=== PATIENT | female | born 2000 | race Caucasian/White ===

== ENCOUNTER 2022-12-19 19:31 | Outpatient (CLI) ==
[~2022-12-19] VITALS: Ht 154.9 cm; Wt 100.4 kg
[2022-12-19 20:12] VITALS: BP 136/87
[2022-12-19 20:24] VITALS: BP 132/67
[2022-12-19 20:29] LABS: APPEARANCE, URINE HAZY (CLEAR); BACTERIA, URINE AUTO 3+ (NEGATIVE); BILIRUBIN, URINE AUTO NEGATIVE (NEGATIVE); BLOOD, URINE BLOOD NEGATIVE (NEGATIVE); COLOR, URINE YELLOW (YELLOW); GLUCOSE, URINE (UA) AUTO NEGATIVE (NEGATIVE); KETONE, URINE AUTO TRACE mg/dL (NEGATIVE); LEUKOCYTE ESTERASE, URINE AUTO 2+ (NEGATIVE); MUCUS, URINE SMALL (NEGATIVE); NITRITE, URINE AUTO NEGATIVE (NEGATIVE); PROTEIN, URINE AUTO NEGATIVE (NEGATIVE); RBC, URINE AUTO 2 /HPF (0-3); SPECIFIC GRAVITY URINE AUTO 1.018 (1.002-1.035); SQUAMOUS EPITHELIAL CELL UR AU 7 /HPF (0-6); UROBILINOGEN, URINE AUTO 0.2 mg/dL (0.0-2.0); WBC, URINE AUTO 2 /HPF (0-3)
== END 2022-12-19 20:44 | disposition home or self-care (01) ==
LOC: M LDO 19:31
PROVIDERS: ATTEND Advanced Practice Midwife
DX: O26.892 Other specified pregnancy related conditions, second trimester (principal); M54.31 Sciatica, right side; Z3A.26 26 weeks gestation of pregnancy
CPT/HCPCS: 59025; 81001; 87086; G0463

== ENCOUNTER → 2023-01-13 | Outpatient (CLI) | payer MEDICAID, OTHER ==
[2023-01-13 13:33] LABS: HEMATOCRIT 38.1 % (36.0-47.0); HEMOGLOBIN 12.1 g/dl (12.0-15.5); MEAN CORPUSCULAR HEMOGLOBIN 27.6 pg (27.0-33.0); MEAN CORPUSCULAR HGB CONC 31.8 g/dl (32.0-36.5); PLATELET COUNT, AUTOMATED 337 10^3/uL (150-450); RED BLOOD COUNT 4.38 10^6/uL (4.00-5.40); WHITE BLOOD COUNT 10.3 10^3/uL (4.0-10.0)
[2023-01-13 16:03] LABS: GC DNA AMPLIFICATION NEGATIVE (NEGATIVE)
== END ==
LOC: M PLALAB 10:26
PROVIDERS: ATTEND Advanced Practice Midwife
DX: Z3A.27 27 weeks gestation of pregnancy (principal)

== ENCOUNTER → 2023-02-01 | Outpatient (CLI) | payer OTHER | LOC: M WHC 12:44 | PROVIDERS: ATTEND Advanced Practice Midwife | DX: O44.42 Low lying placenta NOS or without hemorrhage, second trimester (principal); Z3A.27 27 weeks gestation of pregnancy ==

== ENCOUNTER → 2023-02-23 | Outpatient (REF) | payer OTHER, MEDICAID | LOC: M PLALAB 08:04 | PROVIDERS: ATTEND Advanced Practice Midwife | DX: Z34.80 Encounter for supervision of other normal pregnancy, unspecified trimester (principal) ==

== ENCOUNTER 2023-03-26 06:04 | Inpatient (IN) | payer MEDICAID, OTHER ==
[~2023-03-26] VITALS: Ht 154.9 cm; Wt 107.7 kg
[2023-03-26] VITALS (39 sets, daily range): BP systolic 81–137; BP diastolic 42–85
[2023-03-26] MEDS ORDERED: PRENTAB9 PO (06:54)
[2023-03-26] MEDS ORDERED: ASPI81TA26 PO (06:54)
[2023-03-26] MEDS ORDERED: LACTATED RINGER'S 1000 ML IV PRN (08:00)
[2023-03-26] MEDS ORDERED: OXYTOCIN DRIP 30 UNITS in IV 1 EA IV SCH (08:00)
[2023-03-26] MEDS ORDERED: OXYTOCIN DRIP 30 UNITS in IV 1 EA IV PRN ×4 (08:00)
[2023-03-26] MEDS ORDERED: CARBOPROST TROMETHAMINE 250 MCG/ML AMP IM PRN (08:00)
[2023-03-26] MEDS ORDERED: TRANEXAMIC ACID INJection 1,000 MG in NS 100 ML IV PRN (08:00)
[2023-03-26] MEDS ORDERED: METHYLERGONOVINE MALEATE 0.2MG/ML 1ML VIAL IM PRN (08:00)
[2023-03-26] MEDS ORDERED: HOME MED LIST COMPLETE! XX SCH (08:40)
[2023-03-26 09:34] LABS: HEMATOCRIT 37.3 % (36.0-47.0); MEAN CORPUSCULAR HGB CONC 32.2 g/dl (32.0-36.5); MEAN CORPUSCULAR VOLUME 83.8 fl (80.0-96.0); PLATELET COUNT, AUTOMATED 345 10^3/uL (150-450); RED BLOOD COUNT 4.45 10^6/uL (4.00-5.40); WHITE BLOOD COUNT 9.9 10^3/uL (4.0-10.0)
[2023-03-26] MEDS ORDERED: diphenhydrAMINE 50MG/ML VIAL IV PRN (12:35)
[2023-03-26] MEDS ORDERED: EPIDURAL/PCA KEYS XX PRN (12:35)
[2023-03-26] MEDS ORDERED: NALOXONE INJ 0.4MG/1ML VIAL IV PRN (12:35)
[2023-03-26] MEDS ORDERED: ONDANSETRON 4MG 2ML VIAL IV PRN (12:35)
[2023-03-26] MEDS ORDERED: LR 500 ML IV PRN (12:35)
[2023-03-26] MEDS: FENTANYL/ROPIVACAINE/NACL BAG 100 ML EPIDURAL SCH ×2 (13:52→23:39)
[2023-03-26] MEDS: ePHEDrine SULFATE 25 MG/5 ML(5MG/ML) SYRINGE IVP PRN ×3 (13:53→21:17)
[2023-03-26] MEDS: LR 1,000 ML IV SCH ×2 (13:53→18:58)
[2023-03-26] MEDS ORDERED: ePHEDrine SULFATE 25 MG/5 ML(5MG/ML) SYRINGE IV PRN (21:45)
[2023-03-26] MEDS ORDERED: ePHEDrine INJ 50MG/ML 1ML VIAL IV STA (21:47)
[2023-03-27] VITALS (31 sets, daily range): BP systolic 100–151; BP diastolic 52–88; O2SAT 95–100
[2023-03-27] MEDS ORDERED: ceFAZolin SOD 2 GM in IV 1 EA IV ONE ×2 (07:25→16:00)
[2023-03-27] MEDS ORDERED: BICITRA 30ML SOLN UDC PO ONE (07:25)
[2023-03-27] MEDS ORDERED: AZITHROMYCIN INJ 500 MG, VIAL MATE ADAPTER 1 EACH in NS 250 ML IV ONE (07:25)
[2023-03-27] MEDS ORDERED: OXYTOCIN 30UNITS IN 0.9% NaCl 500ML IV BAG As Ordered ONE ×2 (07:28→09:17)
[2023-03-27] MEDS ORDERED: LIDOCAINE 2% W/EPINEPHRINE 20ML VIAL **PRES FREE As Ordered ONE (07:29)
[2023-03-27] MEDS ORDERED: MORPHINE PRES-FREE INJ 10 MG/10 ML VIAL As Ordered ONE (08:05)
[2023-03-27] MEDS ORDERED: ONDANSETRON 4MG 2ML VIAL As Ordered ONE (08:09)
[2023-03-27] MEDS ORDERED: KETOROLAC 60MG 2ML VIAL As Ordered ONE (08:29)
[2023-03-27] MEDS ORDERED: OXYTOCIN INJ 10UNITS/ML 1ML VIAL As Ordered ONE (08:33)
[2023-03-27] MEDS ORDERED: ONDANSETRON 4MG 2ML VIAL IV PRN ×2 (09:00→09:10)
[2023-03-27] MEDS ORDERED: METOCLOPRAMIDE INJ 10MG/2ML VIAL IV PRN ×2 (09:00→09:10)
[2023-03-27] MEDS ORDERED: SIMETHICONE 80MG CHEW TAB PO PRN (09:00)
[2023-03-27] MEDS ORDERED: oxyCODONE 5MG TAB PO PRN ×3 (09:00→09:10)
[2023-03-27] MEDS: PRENATAL VITAMINS CHEWABLE TABLET PO SCH (09:00)
[2023-03-27] MEDS ORDERED: OXYTOCIN DRIP 30 UNITS in IV 1 EA IV SCH (09:00)
[2023-03-27] MEDS ORDERED: RHOGAM 300MCG (1500IU) INJ IM SCH (09:00)
[2023-03-27] MEDS ORDERED: DOCUSATE SODIUM 100MG CAPSULE PO PRN (09:00)
[2023-03-27] MEDS ORDERED: MEPERIDINE 25 MG/ML 1ML VIAL IV PRN (09:10)
[2023-03-27] MEDS ORDERED: fentaNYL 100 MCG/2 ML INJECTION IV PRN (09:10)
[2023-03-27] MEDS: SLF 3 ML SYR IV SCH ×2 (09:10→16:12)
[2023-03-27] MEDS ORDERED: NALOXONE INJ 0.4MG/1ML VIAL IV PRN ×2 (09:10)
[2023-03-27] MEDS ORDERED: **NOTE PATIENT COMMENT** MISC XX SCH (09:10)
[2023-03-27] MEDS ORDERED: diphenhydrAMINE 50MG/ML VIAL IV PRN (09:10)
[2023-03-27] MEDS ORDERED: HYDROMORPHONE HCL 0.5 MG/ 0.5 ML SYRINGE IV PRN (09:10)
[2023-03-27] MEDS: ACETAMINOPHEN 500 MG TAB PO SCH ×2 (12:12→17:52)
[2023-03-27] MEDS: KETOROLAC 30 MG/ML 1ML VIAL IV SCH ×2 (15:46→20:45)
[2023-03-28] MEDS: ACETAMINOPHEN 500 MG TAB PO SCH ×5 (00:42→23:00)
[2023-03-28 02:00] VITALS: BP 113/60; O2SAT 95
[2023-03-28] MEDS: KETOROLAC 30 MG/ML 1ML VIAL IV SCH (02:34)
[2023-03-28] MEDS: SLF 3 ML SYR IV SCH (02:34)
[2023-03-28 05:53] VITALS: BP 116/60; O2SAT 96
[2023-03-28] MEDS: PRENATAL VITAMINS CHEWABLE TABLET PO SCH (07:57)
[2023-03-28 08:00] LABS: HEMATOCRIT 32.6 % (36.0-47.0); HEMOGLOBIN 10.3 g/dl (12.0-15.5); MEAN CORPUSCULAR HEMOGLOBIN 26.8 pg (27.0-33.0); MEAN CORPUSCULAR HGB CONC 31.6 g/dl (32.0-36.5); MEAN CORPUSCULAR VOLUME 84.9 fl (80.0-96.0); PLATELET COUNT, AUTOMATED 265 10^3/uL (150-450); RED BLOOD COUNT 3.84 10^6/uL (4.00-5.40); WHITE BLOOD COUNT 13.3 10^3/uL (4.0-10.0)
[2023-03-28 10:00] VITALS: BP 108/58; O2SAT 97
[2023-03-28] MEDS: IBUPROFEN 600MG TAB PO SCH ×3 (11:37→23:00)
[2023-03-28 14:00] VITALS: BP 126/76; O2SAT 95
[2023-03-28 18:00] VITALS: BP 123/65; O2SAT 96
[2023-03-28 22:00] VITALS: BP 108/68; O2SAT 96
[2023-03-29 02:00] VITALS: BP 112/61; O2SAT 100
[2023-03-29] MEDS: ACETAMINOPHEN 500 MG TAB PO SCH ×2 (05:13→11:46)
[2023-03-29] MEDS: IBUPROFEN 600MG TAB PO SCH ×2 (05:13→11:46)
[2023-03-29 06:00] VITALS: BP 122/58; O2SAT 96
[2023-03-29] MEDS ORDERED: MEASLES,MUMPS,RUBELLA VACCINE INJ (MMR-II) SC.IMMUN ONE (09:00)
[2023-03-29 09:30] VITALS: BP 122/58; TEMP 98.4; O2SAT 96
[2023-03-29] MEDS: PRENATAL VITAMINS CHEWABLE TABLET PO SCH (09:31)
[2023-03-29] MEDS ORDERED: COLA100C5 PO (11:59)
[2023-03-29] MEDS ORDERED: OXYC-517 PO (11:59)
[2023-03-29] MEDS ORDERED: IBUP-1022 PO (11:59)
== END 2023-03-29 12:40 | disposition home or self-care (01) | DRG 540 ==
LOC: M LDO 06:04 → M LDI 08:03 → M OBS 03-27 10:12
PROVIDERS: ADMIT Obstetrics & Gynecology; ATTEND Obstetrics & Gynecology
PROC: 10907ZC Drainage of Amniotic Fluid, Therapeutic from Products of Conception, Via Natural or Artificial Opening (ICD-10-PCS; 2023-03-26)
PROC: 10D00Z1 Extraction of Products of Conception, Low, Open Approach (ICD-10-PCS; principal; 2023-03-27 07:24)
DX: O62.0 Primary inadequate contractions (principal); Z37.0 Single live birth; Z3A.40 40 weeks gestation of pregnancy; O76 Abnormality in fetal heart rate and rhythm complicating labor and delivery

== ENCOUNTER → 2023-08-08 | Outpatient (CLI) | payer OTHER ==
[~2023-08-08] MED LIST: ASPI81TA26 PO; COLA100C5 PO; IBUP-1022 PO; OXYC-517 PO; PRENTAB9 PO
[2023-08-08 16:27] LABS: HEMATOCRIT 39.5 % (36.0-47.0); HEMOGLOBIN 12.4 g/dl (12.0-15.5); MEAN CORPUSCULAR HEMOGLOBIN 24.2 pg (27.0-33.0); MEAN CORPUSCULAR HGB CONC 31.4 g/dl (32.0-36.5); MEAN CORPUSCULAR VOLUME 77.1 fl (80.0-96.0); PLATELET COUNT, AUTOMATED 418 10^3/uL (150-450); RED BLOOD COUNT 5.12 10^6/uL (4.00-5.40); WHITE BLOOD COUNT 6.1 10^3/uL (4.0-10.0)
[2023-08-08 17:06] LABS: HIV 1&2 SCREEN NEGATIVE (NEGATIVE)
[2023-08-08 17:15] LABS: HEPATITIS C VIRUS ABY INDEX 0.05 INDEX (<0.8)
== END ==
LOC: M PLALAB 13:49
PROVIDERS: ATTEND Obstetrics & Gynecology
DX: Z34.91 Encounter for supervision of normal pregnancy, unspecified, first trimester (principal)

== ENCOUNTER → 2023-09-11 | Outpatient (REF) | payer OTHER, MEDICAID | LOC: M PLALAB 09:50 | PROVIDERS: ATTEND Obstetrics & Gynecology | DX: Z34.80 Encounter for supervision of other normal pregnancy, unspecified trimester (principal) ==

== ENCOUNTER → 2023-11-03 | Outpatient (CLI) | payer OTHER | LOC: M WHC 14:13 | PROVIDERS: ATTEND Specialist | DX: Z34.82 Encounter for supervision of other normal pregnancy, second trimester (principal) ==

== ENCOUNTER → 2023-12-08 | Outpatient (CLI) | payer OTHER | LOC: M WHC 13:21 | PROVIDERS: ATTEND Obstetrics & Gynecology | DX: Z36.2 Encounter for other antenatal screening follow-up (principal) ==

== ENCOUNTER → 2023-12-13 | Outpatient (CLI) | payer OTHER ==
[2023-12-13 17:32] LABS: HEMATOCRIT 36.6 % (36.0-47.0); HEMOGLOBIN 11.6 g/dl (12.0-15.5); MEAN CORPUSCULAR HGB CONC 31.7 g/dl (32.0-36.5); MEAN CORPUSCULAR VOLUME 82.1 fl (80.0-96.0); PLATELET COUNT, AUTOMATED 311 10^3/uL (150-450); RED BLOOD COUNT 4.46 10^6/uL (4.00-5.40); WHITE BLOOD COUNT 8.7 10^3/uL (4.0-10.0)
[2023-12-13 18:54] LABS: GC DNA AMPLIFICATION NEGATIVE (NEGATIVE)
== END ==
LOC: M PLALAB 13:39
PROVIDERS: ATTEND Advanced Practice Midwife
DX: Z34.82 Encounter for supervision of other normal pregnancy, second trimester (principal); Z3A.00 Weeks of gestation of pregnancy not specified

== ENCOUNTER → 2024-02-15 | Outpatient (CLI) | payer OTHER | LOC: M WHC 15:31 | PROVIDERS: ATTEND Obstetrics & Gynecology | DX: O26.843 Uterine size-date discrepancy, third trimester (principal); Z3A.34 34 weeks gestation of pregnancy ==

== ENCOUNTER → 2024-03-01 | Outpatient (REF) | payer OTHER, MEDICAID | LOC: M PLALAB 13:26 | PROVIDERS: ATTEND Advanced Practice Midwife | DX: Z3A.36 36 weeks gestation of pregnancy (principal) ==

== ENCOUNTER 2024-03-18 05:04 | Inpatient (IN) | payer OTHER ==
[~2024-03-18] VITALS: Ht 154.9 cm; Wt 112.5 kg
[2024-03-18] VITALS (9 sets, daily range): BP systolic 101–125; BP diastolic 52–71; TEMP 97.3; O2SAT 96–100
[2024-03-18] MEDS: LACTATED RINGER'S 1000 ML IV STA (05:38)
[2024-03-18 05:57] LABS: HEMATOCRIT 36.5 % (36.0-47.0); HEMOGLOBIN 11.7 g/dl (12.0-15.5); MEAN CORPUSCULAR HEMOGLOBIN 25.2 pg (27.0-33.0); MEAN CORPUSCULAR HGB CONC 32.1 g/dl (32.0-36.5); MEAN CORPUSCULAR VOLUME 78.7 fl (80.0-96.0); PLATELET COUNT, AUTOMATED 281 10^3/uL (150-450); RED BLOOD COUNT 4.64 10^6/uL (4.00-5.40); WHITE BLOOD COUNT 7.1 10^3/uL (4.0-10.0)
[2024-03-18] MEDS: LR 1,000 ML IV SCH (06:42)
[2024-03-18 07:04] LABS: HEPATITIS C VIRUS ABY INDEX 0.03 INDEX (<0.8)
[2024-03-18] MEDS: BICITRA 30ML SOLN UDC PO ONE (07:17)
[2024-03-18] MEDS: ceFAZolin SOD 2 GM in IV 1 EA IV ONE (07:17)
[2024-03-18] MEDS ORDERED: OXYTOCIN 30UNITS IN 0.9% NaCl 500ML IV BAG As Ordered ONE (08:26)
[2024-03-18] MEDS ORDERED: ePHEDrine SULFATE 25 MG/5 ML(5MG/ML) SYRINGE As Ordered ONE (08:26)
[2024-03-18] MEDS ORDERED: LIDOCAINE 2% 100MG/5ML SDV (FOR ANES.) As Ordered ONE (08:26)
[2024-03-18] MEDS ORDERED: KETOROLAC 60MG 2ML VIAL As Ordered ONE (08:26)
[2024-03-18] MEDS ORDERED: ONDANSETRON 4MG 2ML VIAL As Ordered ONE (08:26)
[2024-03-18] MEDS ORDERED: ACETAMINOPHEN 1000MG 100ML IV BAG As Ordered ONE (08:26)
[2024-03-18] MEDS ORDERED: PHENYLephrine 500MCG 5ML (100MCG/ML) SYRINGE As Ordered ONE (08:26)
[2024-03-18] MEDS ORDERED: MORPHINE PRES-FREE INJ 10 MG/10 ML VIAL As Ordered ONE (08:26)
[2024-03-18] MEDS ORDERED: SIMETHICONE 80MG CHEW TAB PO PRN (09:00)
[2024-03-18] MEDS ORDERED: ONDANSETRON 4MG 2ML VIAL IV PRN (09:00)
[2024-03-18] MEDS ORDERED: METOCLOPRAMIDE INJ 10MG/2ML VIAL IV PRN (09:00)
[2024-03-18] MEDS ORDERED: DOCUSATE SODIUM 100MG CAPSULE PO PRN (09:00)
[2024-03-18] MEDS: PRENATAL VITAMINS CHEWABLE TABLET PO SCH (09:00)
[2024-03-18] MEDS ORDERED: oxyCODONE 5MG TAB PO PRN ×2 (09:00)
[2024-03-18] MEDS: OXYTOCIN DRIP 30 UNITS in IV 1 EA IV SCH (09:23)
[2024-03-18] MEDS ORDERED: diphenhydrAMINE 50MG/ML VIAL As Ordered ONE (09:41)
[2024-03-18] MEDS: diphenhydrAMINE 50MG/ML VIAL IV PRN (09:42)
[2024-03-18] MEDS: KETOROLAC 30 MG/ML 1ML VIAL IV SCH (15:32)
[2024-03-18] MEDS: ACETAMINOPHEN 500 MG TAB PO SCH (15:32)
[2024-03-19 02:30] VITALS: BP 101/57; O2SAT 96
[2024-03-19 06:00] VITALS: BP 101/55; O2SAT 97
[2024-03-19 06:23] LABS: HEMATOCRIT 32.8 % (36.0-47.0); HEMOGLOBIN 10.2 g/dl (12.0-15.5); MEAN CORPUSCULAR HEMOGLOBIN 25.1 pg (27.0-33.0); MEAN CORPUSCULAR HGB CONC 31.1 g/dl (32.0-36.5); MEAN CORPUSCULAR VOLUME 80.6 fl (80.0-96.0); PLATELET COUNT, AUTOMATED 241 10^3/uL (150-450); RED BLOOD COUNT 4.07 10^6/uL (4.00-5.40); WHITE BLOOD COUNT 8.8 10^3/uL (4.0-10.0)
[2024-03-19 10:06] VITALS: BP 117/63; O2SAT 96
[2024-03-19] MEDS: IBUPROFEN 600MG TAB PO SCH (12:02)
[2024-03-19 14:00] VITALS: BP 118/53; O2SAT 98
[2024-03-19 18:00] VITALS: BP 98/57; O2SAT 97
[2024-03-19] MEDS ORDERED: OXYC-517 PO (19:27)
[2024-03-19] MEDS ORDERED: COLA100C5 PO (19:27)
[2024-03-19] MEDS ORDERED: ACET-683 PO (19:27)
[2024-03-19] MEDS ORDERED: IBUP-1022 PO (19:27)
[2024-03-19 22:05] VITALS: BP 113/58; O2SAT 96
[2024-03-20 01:50] VITALS: BP 110/60; O2SAT 95
[2024-03-20 05:10] VITALS: BP 109/66; O2SAT 96
[2024-03-20] MEDS: MEASLES,MUMPS,RUBELLA VACCINE INJ (MMR-II) SC.IMMUN ONE (07:19)
[2024-03-20] MEDS: RHO(D) IMMUNE GLOBULIN/MALTOSE 500MCG(2500IU)/2.2ML VIAL (WINRHO) IM SCH (07:20)
[2024-03-20 10:00] VITALS: BP 115/60; O2SAT 96
[2024-03-20] MEDS: BOOSTRIX VACCINE (TETANUS/DIPHTH/ACEL. PERTUSSIS) 0.5ML SYR IM.IMMUN ONE (11:18)
== END 2024-03-20 14:45 | disposition home or self-care (01) | DRG 540 ==
LOC: M LDI 05:04 → M OBS 10:15
PROVIDERS: ADMIT Obstetrics & Gynecology; ATTEND Obstetrics & Gynecology
PROC: 10D00Z1 Extraction of Products of Conception, Low, Open Approach (ICD-10-PCS; principal; 2024-03-18 07:30)
DX: O34.211 Maternal care for low transverse scar from previous cesarean delivery (principal); O40.3XX0 Polyhydramnios, third trimester, not applicable or unspecified; Z37.0 Single live birth; Z3A.39 39 weeks gestation of pregnancy

== ENCOUNTER → 2024-10-07 | Outpatient (CLI) | payer OTHER, MEDICAID ==
[~2024-10-07] MED LIST changes: +ACET-683 PO
[2024-10-07 13:53] LABS: BASO # 0.1 10^3/uL (0.0-0.2); BASO % 0.6 % (0.0-1.0); EOS # 0.4 10^3/uL (0.0-0.5); EOS % 4.9 % (0.0-3.0); HEMATOCRIT 41.5 % (36.0-47.0); LYMPH # 2.3 10^3/uL (1.5-5.0); LYMPH % 25.9 % (24.0-44.0); MEAN CORPUSCULAR HEMOGLOBIN 24.8 pg (27.0-33.0); MEAN CORPUSCULAR HGB CONC 31.3 g/dl (32.0-36.5); MEAN CORPUSCULAR VOLUME 79.2 fl (80.0-96.0); MONO # 0.5 10^3/uL (0.0-0.8); MONO % 5.8 % (2.0-8.0); NEUTROPHILS # 5.5 10^3/uL (1.5-8.5); NEUTROPHILS % 62.6 % (36.0-66.0); PLATELET COUNT, AUTOMATED 422 10^3/uL (150-450); RED BLOOD COUNT 5.24 10^6/uL (4.00-5.40); WHITE BLOOD COUNT 8.8 10^3/uL (4.0-10.0)
[2024-10-07 14:21] LABS: ALBUMIN 3.6 G/DL (3.2-5.2); ALKALINE PHOSPHATASE 90 U/L (35-104); ALT/SGPT 15 U/L (7.0-40); AST/SGOT 11 U/L (<34); BILIRUBIN,TOTAL 0.3 MG/DL (0.3-1.2); BLOOD UREA NITROGEN 14 MG/DL (9-23); CALCIUM LEVEL 9.3 MG/DL (8.5-10.1); CARBON DIOXIDE LEVEL 24 MMOL/L (20-31); CHLORIDE LEVEL 107 MMOL/L (98-107); CHOLESTEROL LEVEL 132 MG/DL (<200); CHOLESTEROL RISK RATIO 2.79 (<5); CREATININE FOR GFR 0.55 MG/DL (0.55-1.30); GLOMERULAR FILTRATION RATE > 60.0 (>60); GLUCOSE, FASTING 91 MG/DL (60-100); HDL CHOLESTEROL 47.2 MG/DL (>40); LDL CHOLESTEROL 67.2 MG/DL (<100); NON-HDL-C 84.8 MG/DL; POTASSIUM SERUM 4.7 MMOL/L (3.5-5.1); SODIUM LEVEL 141 MMOL/L (136-145); TOTAL PROTEIN 6.8 G/DL (5.7-8.2); TRIGLYCERIDES LEVEL 88 MG/DL (<150)
[2024-10-07 14:22] LABS: HEMOGLOBIN A1c 5.6 % (4.0-6.0)
[2024-10-07 14:23] LABS: THYROID STIMULATING HORMONE 2.219 uIU/ML (0.55-4.78)
[2024-10-07 14:25] LABS: FREE T4 0.99 NG/DL (0.89-1.76)
== END ==
LOC: M PLALAB 11:49
PROVIDERS: ATTEND Student in an Organized Health Care Education/Training Program
DX: Z76.89 Persons encountering health services in other specified circumstances (principal)

== ENCOUNTER → 2025-03-21 | Outpatient (CLI) | payer OTHER ==
[~2025-03-21] MED LIST changes: -IBUP-1022 PO; +IBUP600T42 PO
[2025-03-21 14:01] LABS: HCG, SERUM QUALITATIVE POSITIVE (NEGATIVE)
[2025-03-21 14:02] LABS: HCG, SERUM QUANTITATIVE 630.5 MIU/ML (<4.2)
== END ==
LOC: M PLALAB 09:49
PROVIDERS: ATTEND Obstetrics & Gynecology
DX: Z32.01 Encounter for pregnancy test, result positive (principal)

== ENCOUNTER → 2025-04-17 | Outpatient (CLI) | payer OTHER ==
[2025-04-17 13:49] LABS: PLATELET COUNT, AUTOMATED 388 10^3/uL (150-450)
[2025-04-17 14:23] LABS: HIV 1&2 SCREEN NEGATIVE (NEGATIVE)
[2025-04-17 14:32] LABS: HEPATITIS C VIRUS ABY INDEX 0.02 INDEX (<0.8)
== END ==
LOC: M PLALAB 10:36
PROVIDERS: ATTEND Student in an Organized Health Care Education/Training Program
DX: Z34.80 Encounter for supervision of other normal pregnancy, unspecified trimester (principal)

== ENCOUNTER → 2025-04-17 | Outpatient (REF) | payer MEDICAID, OTHER ==
[2025-04-17 14:06] LABS: Trichomonas vaginalis (AMP) NOT DETECTED (NEGATIVE)
[2025-04-17 14:30] LABS: GC DNA AMPLIFICATION NEGATIVE (NEGATIVE)
== END ==
LOC: M PLALAB 10:11
PROVIDERS: ATTEND Student in an Organized Health Care Education/Training Program
DX: Z34.80 Encounter for supervision of other normal pregnancy, unspecified trimester (principal)

== ENCOUNTER → 2025-07-04 | Outpatient (CLI) | payer OTHER | LOC: M WHC 13:26 | PROVIDERS: ATTEND Student in an Organized Health Care Education/Training Program | DX: Z34.82 Encounter for supervision of other normal pregnancy, second trimester (principal); Z3A.19 19 weeks gestation of pregnancy ==